=== PATIENT | female | born 1980 | race Caucasian/White ===

== ENCOUNTER 2021-04-26 13:31 | Emergency (ER) | payer OTHER ==
--- NOTE | 2021-04-26 13:49 | EDM.PDOC ---
ED HPI GENERAL MEDICAL PROBLEM - General Chief Complaint: Laceration Stated Complaint: LEFT HAND LACERATION Time Seen by Provider: 04/26/21 13:36 Source of Information: Reports: Patient History Limitations: Reports: No Limitations - History of Present Illness INITIAL COMMENTS - FREE TEXT/NARRATIVE: 40-year-old female no relevant past medical history presents for laceration to l eft dorsum hand. 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 And hit her in the left dorsum hand. She cannot get the bleeding to stop so came to the emergency department. She is uncertain when her last tetanus vaccination was. Left Hand Pain Score (Numeric/FACES): 4 - Related Data Allergies Allergy/AdvReac Type Severity Reaction Status Date / Time No Known Allergies Allergy Verified 04/26/21 13:47 Home Meds: Home Meds Vilazodone HCl [Viibryd] 20 mg PO DAILY 04/26/21 [History] ED ROS GENERAL - Review of Systems Review Of Systems: Comprehensive ROS is negative, except as noted in HPI. ED EXAM, SKIN/RASH Exam: See Below Exam Limited By: No Limitations General Appearance: Alert, WD/WN, No Apparent Distress Ears: Hearing Grossly Normal Throat/Mouth: Normal Voice, No Airway Compromise Head: Atraumatic, Normocephalic Respiratory/Chest: No Respiratory Distress, No Accessory Muscle Use Cardiovascular: Normal Peripheral Pulses Extremities: Normal Inspection, Other (1.5-cm well approximated linear laceration to dorsum L hand) Neurological: Alert Psychiatric: Normal Affect, Normal Mood Skin: Warm, Dry, Intact, Normal Color ED SKIN PROCEDURES - Laceration/Wound Repair Left Hand Appearance: Superficial, Other (1.5-cm laceration) Distal NVT: Neuro & Vascular Intact Anesthetic Type: Local Local Anesthesia - Lidocaine (Xylocaine): 1% with EPI Local Anesthetic Volume: 3cc Skin Prep: Isopropyl Alcohol (Alcohol) Saline Irrigation (cc's): 50 Closed with: Sutures Lac/Wound length In cm: 1.5 Suture Size: 6-0 # of Sutures: 4 Tetanus Status Addressed: Yes Complications: No Course - Vital Signs Last Recorded V/S: Last Vital Signs Temp 97.2 F 04/26/21 13:47 Pulse 66 04/26/21 13:47 Resp 16 04/26/21 13:47 BP 132/78 04/26/21 13:47 Pulse Ox 97 04/26/21 13:47 - Re-Assessments/Exams Free Text/Narrative Re-Assessment/Exam: 04/26/21 14:10 Patient repaired as noted. Patient return in 7 to 10 days for suture removal. Departure - Departure Time of Disposition: 14:10 Disposition: Home, Self-Care 01 Condition: Good Clinical Impression: Laceration - Discharge Information Instructions: Laceration Care, Adult Referrals: PCP,None [Primary Care Provider] - Forms: ED Department Discharge Additional Instructions: Please return to the emergency department versus urgent care versus your primary care physician for suture removal in 7 to 10 days. The following information is given to patients seen in the emergency department who are being discharged to home. This information is to outline your options for follow-up care. We provide all patients seen in our emergency department with a follow-up referral. The need for follow-up, as well as the timing and circumstances, are variable depending upon the specifics of your emergency department visit. If you don't have a primary care physician on staff, we will provide you with a referral. We always advise you to contact your personal physician following an emergency department visit to inform them of the circumstance of the visit and for follow-up with them and/or the need for any referrals to a consulting specialist. The emergency department will also refer you to a specialist when appropriate. This referral assures that you have the opportunity for follow-up care with a specialist. All of these measure are taken in an effort to provide you with optimal care, which includes your follow-up. Under all circumstances we always encourage you to contact your private physician who remains a resource for coordinating your care. When calling for follow-up care, please make the office aware that this follow-up is from your recent emergency room visit. If for any reason you are refused follow-up, please contact the Emergency Department at and asked to speak to the emergency department charge nurse. Please follow up with your primary care physician. If you do not have a primary care physician, see below: [facility] [address] [place] [id number] [facility] [address] [place] [address] [facility] [address] [place] [id number] Sepsis Event Note (ED) - Focused Exam Vital Signs: Vital Signs Temp Pulse Resp BP Pulse Ox 04/26/21 13:47 97.2 F 66 16 132/78 97
[2021-04-26] MEDS ORDERED: Lidocaine 1% with EPINEPHrine 1:100,000 20 ML MDV INJECT ONE (14:15)
[2021-04-26] MEDS ORDERED: Diphtheria,Pertussis(Acell),Tetanus Vaccine 0.5 ML Syringe IM ONE (14:15)
== END 2021-04-26 14:36 | disposition home or self-care (01) ==
LOC: MW.ED 13:31
DX: S61.412A Laceration without foreign body of left hand, initial encounter (principal); Z23 Encounter for immunization; W26.0XXA Contact with knife, initial encounter
CPT/HCPCS: 12001; 90471; 90715; 99282-25

== ENCOUNTER 2021-12-19 09:49 | Emergency (ER) | payer OTHER ==
[2021-12-19] MEDS ORDERED: Lidocaine 1% 5 ML VIAL INJECT ONE (10:09)
[2021-12-19] MEDS ORDERED: Bupivacaine 0.5% 10 ML SDV INJECT ONE (10:15)
== END 2021-12-19 11:33 | disposition home or self-care (01) ==
LOC: MW.ED 10:29
DX: S61.211A Laceration without foreign body of left index finger without damage to nail, initial encounter (principal); W26.0XXA Contact with knife, initial encounter; Z88.8 Allergy status to other drugs, medicaments and biological substances
CPT/HCPCS: 12001; 99282; J3490